=== PATIENT | male | born 1965 | race Caucasian/White ===

== ENCOUNTER 2018-12-24 21:34 | Emergency (ER) | payer BC ==
[2018-12-24] MEDS ORDERED: MORPHINE SULFATE 4 MG/ML SYRINGE IV STA (22:40)
[2018-12-24] MEDS ORDERED: LIDOCAINE 1% INJ 10MG/ML (20 ML MDV) SQ ONE (22:47)
--- NOTE | 2018-12-24 22:53 | ED ---
Upper Extremity HPI - General Chief Complaint: Extremity Injury, Upper Stated Complaint: Arm Lac Time Seen by Provider: 12/24/18 22:14 Source: patient Mode of arrival: ambulatory Limitations: no limitations - History of Present Illness Initial Comments: This patient is a 53-year-old man who presents to be evaluated for laceration to his left forearm. The patient states that he was using a hardboard grinder and struck his forearm with it. Patient denies weakness or numbness to the hand. He believes his last tetanus shot was 3 years ago. MD Complaint: Injury to:: left, forearm Onset/Timin -: hour(s) Other Extremity Injury: Forearm: Left Handedness: right Place: home Improves With: none Worsens With: none Context: laceration Associated Symptoms: denies other symptoms - Related Data Previous Rx's Medication Instructions Recorded Cephalexin [Keflex] 500 mg PO Q6HR #28 cap 12/24/18 Hydrocodone/Acetaminophen [Collins 1 each PO Q6HR PRN #12 tab 12/25/18 5-325] Allergies Allergy/AdvReac Type Severity Reaction Status Date / Time No Known Allergies Allergy Verified 12/24/18 22:18 Review of Systems ROS Statement: Those systems with pertinent positive or pertinent negative responses have been documented in the HPI. ROS Other: All systems not noted in ROS Statement are negative. Respiratory: Denies: dyspnea Cardiovascular: Denies: chest pain, syncope Musculoskeletal: Reports: as per HPI Past Medical History Past Medical History: No Reported History History of Any Multi-Drug Resistant Organisms: None Reported Past Surgical History: No Surgical Hx Reported Smoking Status: Current every day smoker Past Alcohol Use History: None Reported Past Drug Use History: None Reported General Exam Limitations: no limitations General appearance: alert, in no apparent distress Head exam: Present: atraumatic, normocephalic Respiratory exam: Present: normal lung sounds bilaterally. Absent: respiratory distress, wheezes, rales, rhonchi, stridor Cardiovascular Exam: Present: regular rate, normal rhythm, normal heart sounds, other (Radial and ulnar pulse intact. Normal capillary refill). Absent: systolic murmur, diastolic murmur, rubs, gallop Extremities exam: Present: normal capillary refill, other (Laceration to the left forearm, the ulnar aspects approximately 9 cm in length. This does extend down to tendon sheath. The patient has good strength throughout the finger flexors and the wrist flexors. There is no loss of sensation to the hand.). Absent: normal inspection, pedal edema, calf tenderness Neurological exam: Present: alert. Absent: motor sensory deficit Skin exam: Present: warm, dry, normal color, other (Laceration as above). Absent: rash Course Vital Signs 12/24/18 12/24/18 12/24/18 21:40 22:03 22:48 Temperature 98.0 F Pulse Rate 74 75 77 Respiratory 18 14 14 Rate Blood Pressure 160/99 151/96 160/95 O2 Sat by Pulse 100 93 L 97 Oximetry 12/24/18 12/25/18 12/25/18 23:00 00:00 01:00 Temperature Pulse Rate 77 76 Respiratory 14 14 Rate Blood Pressure 160/95 154/117 O2 Sat by Pulse 97 95 97 Oximetry 12/25/18 02:05 Temperature 98.2 F Pulse Rate 77 Respiratory 16 Rate Blood Pressure 128/82 O2 Sat by Pulse 97 Oximetry Medical Decision Making - Medical Decision Making Case discussed with orthopedic surgeon on-call. His recommendations are followed, including x-ray, thorough irrigation, antibiotic coverage, primary closure, and patient following up in clinic to have reevaluation/possible hand surgery evaluation. Disposition Clinical Impression: Laceration of forearm Disposition: HOME SELF-CARE Condition: Good Instructions (If sedation given, give patient instructions): Wrist Injury (ED), Laceration (DC) Prescriptions: Cephalexin [Keflex] 500 mg PO Q6HR #28 cap Hydrocodone/Acetaminophen [Collins 5-325] 1 each PO Q6HR PRN #12 tab PRN Reason: Pain Is patient prescribed a controlled substance at d/c from ED?: Yes When asked, does pt state using other controlled substances?: No If prescribed controlled substance>3 days was MAPS reviewed?: Prescribed <3 Days If opioid is for acute pain is fill amount 7 days or less?: Yes If Rx opioid, was Start Talking consent form obtained?: Yes Referrals: Zachariah Adams III, MD [Primary Care Provider] - 1-2 days Luis Kelly DO [Medical Doctor] - 1-2 days
[2018-12-24] MEDS ORDERED: ceFAZolin IN SWFI 2 GM/20 ML SYRINGE IVP ONE (23:00)
--- NOTE | 2018-12-25 00:08 | XR ---
EXAM: XR Left Forearm, 2 Views CLINICAL HISTORY: : R/O FB TECHNIQUE: Frontal and lateral views of the left forearm. COMPARISON: No relevant prior studies available. FINDINGS: Soft tissue injury: surface of the forearm with multiple small densities adjacent to and within the soft tissue wound. This may represent small bits of glass debris versus metallic debris. There is a small cortical defect along the margin of the ulna adjacent soft tissue density no definite fracture possible small cortical injury cannot be excluded however . IMPRESSION: Multiple small densities adjacent to the soft tissue injury and within. Small cortical irregularity seen in the AP projection adjacent to the medial margin of ulna along the soft tissue injury clinical correlation required to exclude cortical osseous injury.
[2018-12-25] MEDS ORDERED: HYDROmorphone 0.5 MG/0.5 ML SYRINGE IVP STA (00:31)
[2018-12-25 02:07] VITALS: BP 128/82; PULSE 77; RESP 16; TEMP 98.2
== END 2018-12-25 02:05 | disposition home or self-care (01) ==
LOC: EC 21:34
DX: S51.812A Laceration without foreign body of left forearm, initial encounter (principal); F17.200 Nicotine dependence, unspecified, uncomplicated; W31.89XA Contact with other specified machinery, initial encounter; Y93.89 Activity, other specified; Y92.009 Unspecified place in unspecified non-institutional (private) residence as the place of occurrence of the external cause
CPT/HCPCS: 73090; 99283; 96374; 96375 ×2; J2270; J0690; J1170

== ENCOUNTER → 2023-12-13 | Outpatient (CLI) | payer BC ==
--- NOTE | 2023-12-13 11:52 | CA ---
Exercise Stress Test Report Name: Pepe Umana Exam Date: 12/13/2023 09:11 Exam Location: [facility] Ht (in): 67 Wt (lb): 215 BSA: 2.09 Ordering Phys: Amari Newby DO Referring Phys: Vanna Martinez Technologist: Milana Craven RDCS Age: 58 Gender: M : 1965 Procedure CPT: Indications: I25.10 ATHSCL HEART DISEASE OF [place] CORONARY ART ICD-10 Codes: Patient History: Medications: ATORVASTATIN Meds past 24 hrs: Pretest Chest Pain: STRESS TEST Jason Protocol Exercise Duration (min:sec): 07:[address] Depressions (mm): Angina Score: Carter Score: Resting HR (bpm): 64 Peak HR (bpm): 155 Resting BP (mmHg): 141 / 90 Peak BP (mmHg): 199 / 81 MPHR: 162 Target HR: 138 % MPHR: 96 METS: 9.2 Total Dose: Peak Dose: Atropine: Double Product: 36348 BP Response: Stress Termination: ENDED DUE TO KNEE DISCOMFORT Stress Symptoms: NO SYMPTOMS Stress Summary: Patient exercised on Jason protocol for 7 minutes 15 seconds achieving 96% of patient with maximum heart rate. Patient was able to complete 9.2 METS. Patient did not encounter any chest pain chest pressure during the exercise protocol. The test was terminated because of knee discomfort. Patient had normal blood pressure response during the stress test ECG ANALYSIS Resting ECG: Normal sinus rhythm, normal axis, heart rate 62 bpm, overall normal ECG Stress ECG: No significant ST or T wave changes that are diagnostic for ischemia by ST segment analysis. There were no sustained arrhythmias or ectopic beats noted during the stress test. CONCLUSIONS Overall normal treadmill stress test Good exercise tolerance for age achieving 9.2 METS Nonischemic ECG response to treadmill exercise Normal hemodynamic and clinical response to treadmill exercise Dr Sheng Trinidad (Electronically Signed) Final Date: 13 December 2023 11:51
--- NOTE | 2023-12-13 12:21 | CA ---
Transthoracic Echo Report Name: Pepe Umana Age: 58 Gender: M : 1965 Exam Date: 12/13/2023 08:32 Exam Location: [facility] Ht (in): Wt (lb): Ordering Physician: Amari Newby DO Attending/Referring Phys: Vanna Martinez PAC Copy Room Technician Precious Graham RDCS Procedure CPT: Indications: I25.10 ATHSCL HEART DISEASE OF [place] CORONARY ART Cardiac Hx: Technical Quality: Fair Contrast 1: Total Dose (mL): Contrast 2: Total Dose (mL): MEASUREMENTS (Male / Female) Normal Values 2D ECHO LV Diastolic Diameter PLAX 4.0 cm 4.2 - 5.9 / 3.9 - 5.3 cm LV Systolic Diameter PLAX 3.0 cm IVS Diastolic Thickness 1.1 cm 0.6 - 1.0 / 0.6 - 0.9 cm LVPW Diastolic Thickness 1.2 cm 0.6 - 1.0 / 0.6 - 0.9 cm LV Relative Wall Thickness 0.6 RV Internal Dim ED PLAX 3.9 cm LA Volume 48.3 cm??? 18 - 58 / 22 - 52 cm??? M-MODE Aortic Root Diameter MM 3.2 cm LA Systolic Diameter MM 4.7 cm LA Ao Ratio MM 1.5 AV Cusp Separation MM 2.2 cm DOPPLER AV Peak Velocity 132.6 cm/s AV Peak Gradient 7.0 mmHg AV Mean Velocity 86.2 cm/s AV Mean Gradient 3.5 mmHg AV Velocity Time Integral 27.2 cm LVOT Peak Velocity 135.7 cm/s LVOT Peak Gradient 7.4 mmHg LVOT Velocity Time Integral 29.0 cm MV Area PHT 3.6 cm??? Mitral E Point Velocity 57.9 cm/s Mitral A Point Velocity 94.8 cm/s Mitral E to A Ratio 0.6 MV Deceleration Time 212.3 ms MV E' Velocity 10.6 cm/s Mitral E to MV E' Ratio 5.5 TR Peak Velocity 234.8 cm/s TR Peak Gradient 22.1 mmHg Right Ventricular Systolic Press 27.0 mmHg FINDINGS Left Ventricle Left ventricular cavity size normal. Borderline left ventricular hypertrophy. Normal left ventricular systolic function with no obvious regional wall motion abnormalities. Left ventricular ejection fraction is estimated at 55-60 %. Normal left ventricular diastolic filling pattern. Right Ventricle Normal right ventricular size and function. Right ventricular systolic pressure within normal limits. Right Atrium Normal right atrial size. Left Atrium Normal left atrial size. Mitral Valve Structurally normal mitral valve. No mitral stenosis. No evidence for mitral valve prolapse. Trace mitral regurgitation. Aortic Valve Trileaflet aortic valve. No aortic valve stenosis or regurgitation. Tricuspid Valve Structurally normal tricuspid valve. Mild tricuspid regurgitation. Pulmonic Valve Structurally normal pulmonic valve. Trace pulmonic regurgitation. Pericardium No pericardial effusion. Aorta Normal size aortic root and proximal ascending aorta. CONCLUSIONS Left ventricular ejection fraction is estimated at 55-60 %. No obvious regional wall motion abnormality Normal RV size and systolic function No significant valvular dysfunction No pericardial effusion No significant chamber size abnormality Previewed by: Dr Sheng Trinidad (Electronically Signed) Final Date: 13 December 2023 12:21
== END | disposition home or self-care (01) ==
LOC: RADECHMAIN 08:06
PROVIDERS: ATTEND Family Medicine
DX: R94.31 Abnormal electrocardiogram [ECG] [EKG] (principal); I25.10 Atherosclerotic heart disease of native coronary artery without angina pectoris
CPT/HCPCS: 93017; 93306

== ENCOUNTER → 2023-12-14 | Outpatient (CLI) | payer BC ==
--- NOTE | 2023-12-14 10:52 | CTL ---
EXAMINATION TYPE: CT Low Dose Lung DATE OF EXAM ORDERED: 12/14/2023 History: Lung cancer screening CT DLP: 112.[address] CTDI: 3.1 mGy Automated exposure control for dose reduction was used. Comparison: None TECHNIQUE: Low dose computed tomography scan was performed through the chest at 1 mm thick sections a nd reconstructed images in multiple planes at 1 mm and [address] DIAGNOSTIC QUALITY: Satisfactory FINDINGS: There is moderate emphysematous changes with an upper lobe predominance. There is an 8 mm juxtapleural nodule in the right upper lobe posteriorly. There is no airspace/consolidative density. There are scattered mild interstitial densities in the lower lobes and lingula consistent with mild i nterstitial scarring or fibrosis. There is no mediastinal, hilar or axillary adenopathy. There is no pleural effusion, pleural thickening or pneumothorax. No focal osseous lesions are seen. Limited scans the upper abdomen reveals no gross abnormality IMPRESSION: 1. BI-RADS Category 2 benign. 8 mm juxtapleural nodule right upper lobe posteriorly. Continue routine screening at yearly intervals. 2. No acute cardiopulmonary disease. 3. Moderate emphysematous changes with mild scattered interstitial scarring or fibrosis
== END | disposition home or self-care (01) ==
LOC: RADCTMAIN 06:50
PROVIDERS: ATTEND Family Medicine
DX: Z12.2 Encounter for screening for malignant neoplasm of respiratory organs (principal); R91.1 Solitary pulmonary nodule; F17.210 Nicotine dependence, cigarettes, uncomplicated
CPT/HCPCS: 71271

== ENCOUNTER → 2023-12-18 | Outpatient (CLI) | payer BC ==
--- NOTE | 2023-12-19 08:06 | XR ---
EXAMINATION TYPE: XR shoulder complete 3 views LT, XR knee complete 3 views LT DATE OF EXAM: 12/18/2023 Comparison: None Clinical History: 58-year-old male [id number] LT SHLD PAIN,LT KNEE PAIN Findings: Left shoulder: AC joint appears congruent and intact. Subacromial space is preserved. No tendinous or bursal calcifi cations. Visualized left hemithorax is clear. No acute fracture, subluxation, dislocation. Left knee: Enthesopathy at the upper pole of the patella. Trace joint fluid in the suprapatellar space likely ph ysiologic. No acute fracture, subluxation, dislocation seen. Impression: 1. Left shoulder: No acute osseous abnormality seen. 2. Left knee: No acute osseous abnormality seen.
== END | disposition home or self-care (01) ==
LOC: RADXRYALE 16:51
PROVIDERS: ATTEND Physician Assistant
DX: M25.50 Pain in unspecified joint (principal); M25.512 Pain in left shoulder; M25.562 Pain in left knee